=== PATIENT | male | born 1990 | race Two or more races ===

== ENCOUNTER 2017-06-11 23:01 | Emergency (ER) | payer SELFPAY ==
[2017-06-11 23:12] VITALS: BP 145/111; PULSE 74; RESP 16; TEMP 97.7; O2SAT 96
--- NOTE | 2017-06-11 23:33 | EDPHY ---
H & P Time Seen by Provider: 06/11/17 23:11 HPI/ROS: CHIEF COMPLAINT: "I cant move the right side of my face" HISTORY OF PRESENT ILLNESS: 26-year-old male, generally healthy, complaining of 2 days of right facial paralysis, inability close right eye completely, tearing of the right eye. No gait instability. No slurred speech. No headache. No trauma. No fall. REVIEW OF SYSTEMS: A ten point review of systems was performed and is negative with the exception of the items mentioned in the HPI PAST MEDICAL & SURGICAL HISTORY: No pertinent medical or surgical history SOCIAL HISTORY: nonsmoker PHYSICAL EXAM (Prior to examination, patient consented to physical exam, hands were washed and my usual and customary physical exam procedures followed) 1) GENERAL: Well-developed, well-nourished, alert and oriented. Appears to be in no acute distress. 2) HEAD: Normocephalic, atraumatic 3) HEENT: incomplete closure of the right eye. No loss of nasolabial fold on the right side. Right eyebrow sagging, and drooping at the affected corner of the mouth, which is drawn to the unaffected side. Pupils equal, round, reactive to light bilaterally. Sclera anicteric. Nasopharynx, oropharynx, clear, no lesions. Ears bilaterally with normal tympanic membranes. 4) NECK: Full range of motion, no meningeal signs. 5) LUNGS: Clear auscultation bilaterally, no wheezes, no rhonchi, no retractions. 6) HEART: Regular rate and rhythm, no murmur, no heave, no gallop. 7) ABDOMEN: No guarding, no rebound, no focal tenderness, negative McBurney's, negative Alejo's, negative Rovsing's, negative peritoneal sign, 8) MUSCULOSKELETAL: Moving all extremities, no focal areas of tenderness, no obvious trauma. No peripheral edema or discoloration. 9) BACK: No CVA tenderness, no midline vertebral tenderness, no fluctuance, no step-off, no obvious trauma, no visual or palpable abnormality. 10) SKIN: No rash, no petechiae. 11) NEURO: Awake, alert, and oriented to person, place and time. Answers questions appropriately. There were no obvious focal neurologic abnormalities. No cerebellar dysfunction. Normal steady gait. Upper and lower extremities bilaterally with strength 5 / 5, reflexes 2+.. DIFFERENTIAL DIAGNOSIS: in no particular include but limited to zoster, Jackson's palsy, CVA Smoking Status: Never smoked Constitutional: Initial Vital Signs Temperature (C) 36.5 C 06/11/17 23:10 Heart Rate 74 06/11/17 23:10 Respiratory Rate 16 06/11/17 23:10 Blood Pressure 145/111 H 06/11/17 23:10 O2 Sat (%) 96 06/11/17 23:10 O2 Delivery Mode Room Air Allergies/Adverse Reactions: No Known Allergies Allergy (Unverified 05/11/16 08:31) Home Medications: Medication Instructions Recorded Dextran 70/Hypromellose 1 drop OP Q1 #1 btl 06/11/17 [Artificial Tears Eye Drops] Valacyclovir HCl [Valtrex] 1,000 mg PO TID #21 tab 06/11/17 predniSONE 60 mg PO DAILY #21 tab 06/11/17 MDM/Departure - [facility] ED Course/Re-evaluation: Doubt central lesion etiology. 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 Recommend starting the antiviral and glucocorticoid therapy as well as artificial tears. Given usual and customary Jackson's palsy precautions instructions.Care of patient under supervision of secondary supervising physician Dr Salas . - Depart Disposition: Home, Routine, Self-Care Clinical Impression: Jackson's palsy Condition: Good Instructions: Jackson Palsy (ED) Additional Instructions: Call 911 if you develop new or worsening symptoms, if you develop difficulty walking or talking or any other symptoms that concern you Prescriptions: Dextran 70/Hypromellose [Artificial Tears Eye Drops] 1 drop OP Q1 #1 btl predniSONE 60 mg PO DAILY #21 tab Valacyclovir HCl [Valtrex] 1,000 mg PO TID #21 tab Referrals: [facility],. [Clinic] - 1-2 days without fail
[2017-06-11] MEDS ORDERED: predniSONE 20 MG TAB PO ONE (23:35)
[2017-06-11] MEDS ORDERED: valACYclovir 500 MG TAB PO ONE (23:36)
== END 2017-06-12 00:06 | disposition home or self-care (01) ==
DX: G51.0 Bell's palsy (principal)

== ENCOUNTER 2019-01-26 16:33 | Emergency (ER) | payer SELFPAY ==
[2019-01-26 16:39] VITALS: BP 153/84
--- NOTE | 2019-01-26 17:03 | EDPHY ---
H & P Time Seen by Provider: 01/26/19 16:43 HPI/ROS: CHIEF COMPLAINT: Sore throat HISTORY OF PRESENT ILLNESS: The patient is a 28-year-old male who presents emergency department with sore throat. His pain started 1 week ago. His pain is bilateral. It is moderate. It is worse with swallowing. He is able to tolerate his secretions and liquids. On Wednesday he had a temperature to 100. Patient denies any neck stiffness. No cough or shortness of breath. REVIEW OF SYSTEMS: 10 systems were reveiwed and are negative with the exception of the elements mentioned in the history of present illness. Past Medical/Surgical History: Negative Social history: Patient does not smoke Smoking Status: Current some day smoker Physical Exam: Vitals noted GENERAL: Well-appearing, in no acute distress, alert. HEENT: Eyes normal to inspection,no signs of dehydration. Patient has pharyngeal erythema with tonsillar swelling. There is pus discharge. No lesions. Uvula is midline. No asymmetry. Airway is open. NECK: Normal, supple. No stridor. Bilateral anterior lymphadenopathy. RESPIRATORY: Clear to auscultation bilaterally, no rales, rhonchi or wheezing. CVS: Regular rate and rhythm, no rubs, murmurs, or gallops. ABDOMEN: Soft, nontender, nondistended, no organomegaly. BACK: Normal to inspection, no CVA tenderness. SKIN: Normal color, no rash, warm, dry. No pallor. EXTREMITIES: No pedal edema, no calf tenderness, no Homans sign or cords, no joint swelling. NEURO/PSYCH: Alert and oriented, normal mood and affect, normal motor sensory exam. No obvious cranial nerve deficit. Constitutional: Initial Vital Signs Temperature (C) 36.6 C 01/26/19 16:37 Heart Rate 81 01/26/19 16:37 Respiratory Rate 17 01/26/19 16:37 Blood Pressure 153/84 H 01/26/19 16:37 O2 Sat (%) 95 01/26/19 16:37 O2 Delivery Mode Room Air Allergies/Adverse Reactions: No Known Allergies Allergy (Verified 01/26/19 16:36) Home Medications: Medication Instructions Recorded Penicillin V Potassium 500 mg PO TID 10 Days tablet 01/26/19 Medical Decision Making ED Course/Re-evaluation: In the emergency department I discussed possible etiologies with the patient. I answered all his questions. Patient was given a dose of Decadron 8 mg orally. The patient was given a prescription of penicillin. Differential Diagnosis: My differential includes but is not limited to pharyngitis, strep pharyngitis, peritonsillar abscess, retropharyngeal abscess, epiglottitis, tracheitis Departure - Departure Disposition: Home, Routine, Self-Care Clinical Impression: Acute pharyngitis Qualifiers: Pharyngitis/tonsillitis etiology: unspecified etiology Qualified Code(s): J02.9 - Acute pharyngitis, unspecified Condition: Good Instructions: Pharyngitis (ED) Additional Instructions: Returned with increasing sore throat, persistent fever, shortness of breath, or any other concerns. Take your entire course of antibiotics. Referrals: Edson Zhou MD [Medical Doctor] - 5-7 days, call for appt. Prescriptions: Penicillin V Potassium 500 mg PO TID 10 Days tablet
[2019-01-26] MEDS ORDERED: DEXAMETHASONE 4 MG TAB PO ONE (17:04)
[2019-01-26] MEDS ORDERED: PENICILLIN VK 500 MG TAB PO ONE (17:04)
== END 2019-01-26 17:20 | disposition home or self-care (01) ==
DX: J02.9 Acute pharyngitis, unspecified (principal); F17.200 Nicotine dependence, unspecified, uncomplicated